=== PATIENT | female | born 1990 | race Caucasian/White ===

== ENCOUNTER 2024-06-17 19:35 | Emergency (ER) | payer MEDICAID, OTHER, SELFPAY | END 2024-06-17 21:56 | disposition home or self-care (01) | LOC: CSHERS 19:35 | DX: J06.9 Acute upper respiratory infection, unspecified (principal) | CPT/HCPCS: 99283 ==

== ENCOUNTER 2025-02-14 22:51 | Emergency (ER) | payer SELFPAY | END 2025-02-15 01:29 | disposition home or self-care (01) | LOC: CSHERS 22:51 | DX: J02.9 Acute pharyngitis, unspecified (principal); B34.9 Viral infection, unspecified | CPT/HCPCS: 87081; 87430; 99283 ==

== ENCOUNTER 2025-04-14 01:28 | Emergency (ER) | payer SELFPAY ==
[2025-04-14 01:45] LABS: Glucose, Urine (Dipstick) Normal (Negative); Leukocyte 100 (Negative); Protein, Urine (Dipstick) 100 mg/dl (Neg-Trace); Specific Gravity, Urine 1.025 (1.005-1.030)
[2025-04-14 01:48] LABS: Pregnancy Test - Urine (BHCG) Negative (Negative); Pregu Control Background? CLEAR/WHITE (CLR/WHITE); Pregu Control Bar Appear? YES (CONTROL BAR)
[2025-04-14 01:51] LABS: Bacteria/HPF Rare-Few HPF (None Seen); CAUTI Indications for Culture Dysuria,urgency,freq; RBC/HPF Greater than 50 HPF (0-3)
[2025-04-14 01:52] LABS: Urine Culture Reflex No No
[2025-04-14 03:10] LABS: Hematocrit 37.3 % (34.9-44.5); Hemoglobin 12.0 g/dL (12.0-15.5); Mean Corpuscular Hemoglobin 30.0 pg (27.0-33.0); Mean Corpuscular Volume 93.3 fL (81.6-98.3); Platelet Count 392 10x3/uL (150-450); Red Blood Cell (RBC) Count 4.00 10x6/uL (3.90-5.03); White Blood Cell (WBC) Count 17.44 10x3/uL (3.5-10.5)
[2025-04-14 03:18] LABS: ALT (SGPT) 9 U/L (Less than 34); AST (SGOT) 13 U/L (11-34); Albumin 3.1 g/dL (3.1-4.5); Alkaline Phosphatase 45 U/L (40-110); Anion Gap 10 mmol/L (10-20); BUN (Urea Nitrogen) 16 mg/dL (7.0-18.7); Bilirubin, Total 0.3 mg/dL (0.3-1.2); Calc. Creatinine Clearance 0 mL/min (70-130); Calcium 8.4 mg/dL (7.8-10.44); Carbon Dioxide 25 mmol/L (22-29); Chloride 109 mmol/L (98-107); Globulin 2.5 g/dL (2.4-3.5); Glucose 109 mg/dL (70-105); Potassium 3.8 mmol/L (3.5-5.1); Sodium 140 mmol/L (136-145)
[2025-04-14 03:31] LABS: MDiff Complete? YES; Platelet Adequacy Comment Appears Adequate; RBC Morphology Within Normal Limits
[2025-04-14] MEDS ORDERED: Ketorolac Tromethamine 30 MG (1 mL) VIAL ONE (03:49)
== END 2025-04-14 04:48 | disposition home or self-care (01) ==
LOC: CSHERS 01:28
DX: N13.2 Hydronephrosis with renal and ureteral calculous obstruction (principal)
CPT/HCPCS: 36415; 74176; 80053; 81001; 81025; 85025; 96374; J1885

== ENCOUNTER 2025-05-17 07:39 | Emergency (ER) | payer SELFPAY ==
[2025-05-17] MEDS ORDERED: Ibuprofen 200 MG TAB ONE (08:23)
== END 2025-05-17 08:48 | disposition home or self-care (01) ==
LOC: CSHERS 07:39
DX: S92.412A Displaced fracture of proximal phalanx of left great toe, initial encounter for closed fracture (principal); M85.872 Other specified disorders of bone density and structure, left ankle and foot; Z75.3 Unavailability and inaccessibility of health-care facilities; W13.4XXA Fall from, out of or through window, initial encounter
CPT/HCPCS: 99283